=== PATIENT | female | born 1980 | race Caucasian/White ===

== ENCOUNTER 2018-05-14 18:42 | Emergency (ER) | payer SELFPAY ==
[2018-05-14 18:47] VITALS: BP 114/73
--- NOTE | 2018-05-14 19:15 | EDPHY ---
General Time Seen by Provider: 05/14/18 19:07 Narrative: CHIEF COMPLAINT: Seizure HISTORY OF PRESENT ILLNESS: Patient presents by EMS with reports of seizure. This was unwitnessed. This reportedly happened around 1:00 p.m. Today. She states that she could "feel it coming on because I was dizzy and nauseated."She states that this happened the past. She has a known seizure disorder, diagnosed with epilepsy. She says that she has recently had her medications changed by her neurologist. They discontinued Keppra and switched her to Oxcella XR. They also reportedly discontinued her citalopram, changing to Zoloft. She says that since then she is "not felt right."She denies any chest pain. She says she does have a mild headache and feels achy all over. She is very tearful. She is very abrupt, it is very difficult to obtain a history from the patient without her becoming upset or agitated. She denies any neck pain, chest pain, abdominal pain. She does feel nauseated and says she vomited once. No visual disturbance. No other associated complaints or modifying factors REVIEW OF SYSTEMS: 10 systems were reviewed and negative with the exception of the elements mentioned in the history of present illness. PCP: Dr. London SPECIALISTS: Dr. Tucker, Neurology PAST MEDICAL HISTORY: Epilepsy, anxiety PAST SURGICAL HISTORY: Remote appendectomy SOCIAL HISTORY: Denies any alcohol or drug use. 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 No Ortiz sign. No raccoon eyes. No depression, hematoma or deformity. Eyes: Pupils equal and round, no conjunctival pallor or injection. No nystagmus or dysconjugate gaze. ENT, Mouth: Mucous membranes moist. Airway widely patent. There is no trauma to the tongue. Neck: Normal inspection, supple, non-tender Respiratory: Lungs are clear to auscultation Cardiovascular: Regular rate and rhythm. No murmur. Gastrointestinal: Abdomen is soft and nontender Back: non-tender, no bony abnormalities Neurological: GCS 15. A&O, nonfocal. Strength is symmetric in the elbows, wrists, interossei, knees, ankles and great toes. Light sensory symmetric in the upper lower extremities. Normal steady gait. No altered mentation or postictal state Skin: Warm and dry, no rash. Multiple tattoos Extremities: Nontender, no pedal edema. Symmetric range of motion all 4 extremities Psychiatric: Mood and affect normal DIFFERENTIAL DIAGNOSES: Including but not limited to seizure, pseudo-seizure, anxiety attack, depression MDM: 7:30 p.m. Possible seizure in patient with known seizure disorder. I suspect this may be non-epileptic seizure. This was unwitnessed. Unable to corroborate this. She is very tearful and anxious. I have ordered 1 dose of Ativan and we will obtain laboratory studies. She is refusing seizure precautions and we had a lengthy discussion regarding this. She states that she will not consent to this. She is awake and alert. Her GCS is 15. She exhibits no altered mentation or evidence of intoxication. 7:50 p.m. Notified by RN that the patient has eloped the emergency department. She informs me that they saw her leaving but when able to stop her. They think that her IV still in place, thus police have been notified to check on her for discontinuation of the IV. We will also call the patient and find out if she has returned to her room. 8:45 p.m. I have been informed that multiple attempts were made to contact the patient by telephone. I have also been informed that [place] [employer] has been mobilized to provide a well check on the patient to discontinue the IV. At this point the patient has been discharged from the emergency department as against medical advice/eloped. At no point in time did the patient appear to be intoxicated, postictal or altered in any way. High suspicion for nonepileptic seizures/pseudoseizures. SUPERVISION: This patient was independently evaluated without direct involvement of or examination by the attending physician. CONSULTATION: None - History Smoking Status: Current every day smoker - Objective Vital Signs: Initial Vital Signs Temperature (C) 97.9 F 05/14/18 18:45 Heart Rate 64 05/14/18 18:45 Respiratory Rate 18 05/14/18 18:45 Blood Pressure 114/73 05/14/18 18:45 O2 Sat (%) 98 05/14/18 18:45 O2 Delivery Mode Room Air Allergies/Adverse Reactions: No Known Allergies Allergy (Unverified 05/14/18 18:45) Home Medications: Medication Instructions Recorded Citalopram 05/14/18 Clonazepam 05/14/18 Laboratory Results: Laboratory Results 05/14/18 18:45 05/14/18 18:45 05/14/18 05/14/18 05/14/18 18:45 18:45 18:45 WBC 4.73 10^3/uL 10^3/uL (3.80-9.50) RBC 4.22 10^6/uL 10^6/uL (4.18-5.33) Hgb 12.2 g/dL L g/dL (12.6-16.3) Hct 36.3 % L % (38.0-47.0) MCV 86.0 fL fL (81.5-99.8) MCH 28.9 pg pg (27.9-34.1) MCHC 33.6 g/dL g/dL (32.4-36.7) RDW 13.1 % % (11.5-15.2) Plt Count 263 10^3/uL 10^3/uL (150-400) MPV 12.1 fL H fL (8.7-11.7) Neut % (Auto) 54.6 % % (39.3-74.2) Lymph % (Auto) 37.4 % % (15.0-45.0) Iron % (Auto) 6.3 % % (4.5-13.0) Eos % (Auto) 1.1 % % (0.6-7.6) Baso % (Auto) 0.4 % % (0.3-1.7) Nucleat RBC Rel Count 0.0 % % (0.0-0.2) Absolute Neuts (auto) 2.58 10^3/uL 10^3/uL (1.70-6.50) Absolute Lymphs (auto) 1.77 10^3/uL 10^3/uL (1.00-3.00) Absolute Monos (auto) 0.30 10^3/uL 10^3/uL (0.30-0.80) Absolute Eos (auto) 0.05 10^3/uL 10^3/uL (0.03-0.40) Absolute Basos (auto) 0.02 10^3/uL 10^3/uL (0.02-0.10) Absolute Nucleated RBC 0.00 10^3/uL 10^3/uL (0-0.01) Immature Gran % 0.2 % % (0.0-1.1) Immature Gran # 0.01 10^3/uL 10^3/uL (0.00-0.10) Sodium 138 mEq/L mEq/L (135-145) Potassium 4.3 mEq/L mEq/L (3.3-5.0) Chloride 105 mEq/L mEq/L (97-110) Carbon Dioxide 24 mEq/l mEq/l (22-31) Anion Gap 9 mEq/L mEq/L (8-16) BUN 12 mg/dL mg/dL (7-23) Creatinine 0.7 mg/dL mg/dL (0.6-1.0) Estimated GFR > 60 Glucose 78 mg/dL mg/dL (70-100) Calcium 8.8 mg/dL mg/dL (8.5-10.4) Beta HCG, Qual NEGATIVE Departure - Departure Disposition: Against Medical Advice Clinical Impression: Seizure disorder Condition: Fair Instructions: Anxiety (ED), Anxiolysis in Adults (ED) Referrals: Patient,NotPresent [Primary Care Provider] - As per Instructions Markus Todd DO [Medical Doctor] - As per Instructions RENAN TUCKER [Non Staff Provider ()] - As per Instructions
[2018-05-14] MEDS ORDERED: NS 1,000 ML IV ONE (19:29)
[2018-05-14] MEDS ORDERED: LORazepam 2 MG/ML INJ IVP ONE (19:29)
[2018-05-14 19:36] LABS: PLATELET COUNT 263 10^3/uL (150-400)
== END 2018-05-14 20:32 | disposition left against medical advice (07) ==
LOC: EDUNIT#
DX: G40.909 Epilepsy, unspecified, not intractable, without status epilepticus (principal); F17.200 Nicotine dependence, unspecified, uncomplicated
CPT/HCPCS: J2060